=== PATIENT | female | born 1945 | race Caucasian/White ===

== ENCOUNTER 2020-05-16 07:25 | Day surgery (SDC) | payer MEDICARE, BC ==
[2020-05-15 14:27] VITALS: BMI 23.9
[~2020-05-16 07:25] MED LIST: EPINEPHrine 0.3 MG in Ophthalmic Irrigation Solution 500 ML IRR SCH
[2020-05-16] MEDS ORDERED: Phenylephrine 2.5% Ophth Soln 5 ML BOT ONE (07:44)
[2020-05-16] MEDS ORDERED: Cyclopentolate 1% Ophth Drops 15 ML BOT ONE (07:45)
[2020-05-16] MEDS ORDERED: Midazolam HCl 2 mg/2 ml Vial ONE (08:59)
[2020-05-16] MEDS ORDERED: Fentanyl 100 MCG/2 ML VIAL ONE (08:59)
[2020-05-16] MEDS ORDERED: Maxitrol 0.1% Opth Oint 3.5 GM TUBE ONE (10:52)
[2020-05-16] MEDS ORDERED: Indocyanine Green 25 MG/10 ML VIAL ONE (10:52)
[2020-05-16] MEDS ORDERED: CEFAZOLIN 1 GM VIAL ONE (10:52)
[2020-05-16] MEDS ORDERED: Bupivacaine PF 0.75% SDV 10 ML ONE (10:52)
[2020-05-16] MEDS ORDERED: Triamcinolone 40 MG/ML VIAL ONE (10:52)
[2020-05-16] MEDS ORDERED: Lidocaine 4% PF 5 ML AMP ONE (10:52)
[2020-05-16] MEDS ORDERED: PROPOFOL 200 MG/20 ML VIAL ONE (10:52)
[2020-05-16] MEDS ORDERED: Lidocaine 1% PF 5 ML VIAL ONE (10:52)
--- NOTE | 2020-05-16 11:00 | OP ---
DATE OF PROCEDURE: 05/16/2020 PRINCIPAL PREOPERATIVE DIAGNOSIS: Epiretinal membrane, right eye. POSTOPERATIVE DIAGNOSIS: Epiretinal membrane, right eye. PROCEDURES PERFORMED: 1. 25-gauge pars plana vitrectomy, right eye. 2. Epiretinal membrane/internal limiting membrane removal, right eye. ESTIMATED BLOOD LOSS: None. SPECIMENS REMOVED: None. COMPLICATIONS: None. ANESTHESIA: MAC with sub-Tenon block. DESCRIPTION OF PROCEDURE: The patient was identified in the preoperative holding area, where the correct eye being the right eye was marked for surgery. The patient was taken to the operating room, where MAC anesthesia was induced. The right eye was prepped and draped in the usual sterile ophthalmic fashion for surgery. A wire-clip lid speculum was placed. An inferonasal conjunctival peritomy was fashioned with Naty scissors for administration of sub-Tenon block. The block consisted of 1:1 ratio of 4% lidocaine and 0.75% Marcaine. A total of 5 mL was administered. A standard 25-gauge pars plana vitrectomy platform was fashioned with trocars placed approximately 3.5 mm from the limbus. The infusion was noted to be within the vitreous cavity prior to being turned on to an infusion pressure of 30 mmHg. The light pipe and microvitrector were introduced in the eye under visualization of the BIOM viewing system. A careful core and peripheral shave vitrectomy were performed with the assistance of Angel. Following vitrectomy, ICG dye was used to stain the internal limiting membrane. The internal limiting membrane/epiretinal membrane complex removal was performed in a circumferential fashion about the fovea with the use of Jose ILM forceps. The peel extended approximately 2 disk diameters in radius circumferentially. Following peeling, the microvitrector was reinserted in the eye to remove any residual vitreous debris. A 360-degree scleral depressed exam of the periphery revealed no defects. The cannulas were sequentially removed with suturing required of a supratemporal sclerotomy with 8-0 Vicryl suture. Following suturing, all sclerotomies were noted to be watertight. Subconjunctival Ancef and Kenalog were injected. The wire-clip lid speculum was removed followed by application of TobraDex ophthalmic ointment and a light patch and shield. The patient tolerated the procedure well and was taken to outpatient recovery area in good condition. Job ID: [id number]
== END 2020-05-16 11:19 | disposition home or self-care (01) ==
LOC: SDC 07:25
PROVIDERS: ATTEND Ophthalmology Retina Specialist
PROC: 08T43ZZ Resection of Right Vitreous, Percutaneous Approach (ICD-10-PCS; principal; 2020-05-16)
PROC: 08NE3ZZ Release Right Retina, Percutaneous Approach (ICD-10-PCS; 2020-05-16)
DX: H35.371 Puckering of macula, right eye (principal); M19.90 Unspecified osteoarthritis, unspecified site; Z79.82 Long term (current) use of aspirin; Z79.899 Other long term (current) drug therapy
CPT/HCPCS: J0171; J0690; J2250; J2704; J3010; J3301; J3490